=== PATIENT | female | born 1980 | race Two or more races ===

== ENCOUNTER → 2018-03-12 09:21 | Outpatient (CLI) | payer SELFPAY ==
[2018-03-12 10:21] LABS: ALBUMIN 3.8 g/dL (3.4-5.0); ALKALINE PHOSPHATASE 51 U/L (46-116); ALT (SGPT) 67 U/L (10-68); BILIRUBIN - DIRECT 0.06 mg/dL (0.00-0.30); BILIRUBIN - INDIRECT 0.15 mg/dL (0.00-1.00); BILIRUBIN - TOTAL 0.21 mg/dL (0.2-1.3); CALC OSMOLALITY 271 mosm/kg (275-300); CALCIUM 8.7 mg/dL (8.5-10.1); CARBON DIOXIDE 28.5 mmol/L (21.0-32.0); CHLORIDE - SERUM 104 mmol/L (98-107); CREATININE - SERUM 0.7 mg/dL (0.6-1.3); GLUCOSE 82 mg/dL (74-106); POTASSIUM - SERUM 4.1 mmol/L (3.5-5.1); PROTEIN - SERUM 7.7 g/dL (6.4-8.2); SODIUM 137 mmol/L (136-145); UREA NITROGEN 10 mg/dL (7-18); eGFR NON AFRICAN AMERICAN > 90 mL/min (90-120)
== END | disposition home or self-care (01) ==
LOC: D.LAB 09:21 → D.US 10:00
PROVIDERS: Surgery
DX: R10.11 Right upper quadrant pain (principal)

== ENCOUNTER → 2018-03-13 07:22 | Outpatient (CLI) | payer SELFPAY | END | disposition home or self-care (01) | LOC: D.US 03-12 07:30 | DX: R10.11 Right upper quadrant pain (principal) ==